=== PATIENT | male | born 1935 | race Caucasian/White ===

== ENCOUNTER 2021-05-31 16:44 | Emergency (ER) | payer MEDICARE ==
[~2021-05-31] VITALS: Ht 177.8 cm; Wt 69.0 kg
--- NOTE | ~2021-05-31 | EMS ---
[address] [address] EMS Patient Care Report Name: DERRICK HERNANDEZ Room: [facility] Naren#: [id number] Admission: 05/31/21 Attend Phys: Discharge: 05/31/21 Date of : 35 Report #: [id number] THIS REPORT FOR: //name// Report Transmitted: 06/01/2021 08:17 EMS Care Summary [facility] [place] Incident [id number] @ 05/31/2021 15:50 Incident Location [address] [place] [address] Patient Derrick Hernandez Male, 85 Years 1935 Patient Address [address] [place] [address] Patient History Endocrine Condition - Other,Hypertension (HTN),Cancer, Unspecified,Neuropathy, Patient Allergies No known allergies, Chief Complaint Abdominal pain/discomfort Disposition Transported No Lights/[place] Dispatch Reason Sick Person Transported To [facility] Narrative [facility] WAS DISPATCHED TO THE LISTED LOCAL ADDRESS ON A SICK. ON SCENE WITH IF[employer], WE CONTACTED THE PATIENT AND HIS INSIDE THE RESIDENCE. THE PATIENT WAS USING HIS WALKER, WALKING THROUGH HIS LIVING ROOM WITH NO OBVIOUS IMMEDIATE LIFE THREATS OR SIGNS OF DISTRESS. THE PATIENT STATED HIS FEEDING TUBE CAME OUT LAST NIGHT AND HE IS HAVING ABDOMINAL PAIN THAT IS "KEEPING HIM FROM WALKING AND MOVING AROUND." THE PATIENT DENIED ANY DIFFICULTY BREATHING, [address] [place] [address] EMS Patient Care Report Name: DERRICK HERNANDEZ Room: [facility]#: [id number] Admission: 05/31/21 Attend Phys: Discharge: 05/31/21 Date of : 35 Report #: [id number] DIZZINESS/WEAKNESS, TINGLING/NUMBNESS IN HIS EXTREMITIES (OUTSIDE BASELINE), HEADACHE, NAUSEA, VISION IMPAIRMENTS, CHEST PAIN, OR CURRENT PAIN OF ANY TYPE. THE PATIENTS G-TUBE SITE WAS CLEAN AND BANDAGED. THE PATIENT STATED HE COULD WALK (USING HIS WALKER) TO THE STRETCHER, LOCATED OUT IN THE DRIVEWAY. ONCE THE PATIENT GOT TO THE [facility], HE USED THE RAILING AND THE ASSISTANCE OF AN IFD MATERIAL CONTROL ASSOCIATE TO GO DOWN THE STAIRS AND LAY ON THE STRETCHER. THE PATIENT WAS VERY ADAMENT ABOUT TAKING HIS WALKER. HE WAS secured TO THE STRETCHER WITH THE LAP BELTS AND TRANSPORTED TO THE AMBULANCE WERE HE AND HIS WALKER WERE LOADED AND SECURED WITHOUT INCIDENT. INSIDE THE AMBULANCE, THE PATIENT WAS PLACED ON the MONITOR. A FULL SET OF VITALS, PHYSICAL ASSESSMENT, AND PATIENT information WERE OBTAINED. THE PATIENT DID COULD NOT PROVIDE ANY CURRENT MEDICATION INFORMATION, HE SAID "MY TAKES CARE OF ALL THAT." AN IV WAS ESTABLISHED AND BLOOD GLUCOSE OBTAINED. TRANSPORT WAS INITIATED. FLUIDS WERE ADMINISTERED AND AN ECG WAS OBTAINED. VITALS WERE monitored EN-ROUTE. THE PATIENT REMAINED STABLE AND TALKATIVE DURING TRANSPORT. AT DESTINATION, THE PATIENT WAS REMOVED FORM ALL MONITORING. HE SIGNED THE PRIVACY AND TRANSFER FORM. THE patient AND HIS BELONGINGS WERE UNLOADED AND TAKEN INTO ROOM TEN (10). THE STRETCHER WAS LOWERED AND LAP BELTS REMOVED. THE PATIENT WAS ABLE TO SCOOT HIMSELF OFF THE STRETCHER, ONTO THE HOSPITAL BED WITHOUT INCIDENT OR ASSISTANCE. A VERBAL PATIENT REPORT WAS GIVEN TO KENAN ANN. SHE signed THE RECEIVING FACILITY FORM, COMPLETING THE TRANSFER OF CARE. [facility]W CLEARED THE CALL. Initial Vitals @16:00Pain: 0/10, @16:36Pain: 0/10, @16:11SpO2: 97, @16:12SpO2: 96, @16:14SpO2: 97, @16:19SpO2: 97, @16:24SpO2: 96, @16:24SpO2: 98, @16:29SpO2: 98, @16:36SpO2: 98, @16:18 @16:20 @16:27 @16:11P: 55,R: 14,BP: 176/80, @16:24P: 61,R: 12,BP: 169/81, @16:36P: 55,R: 12,BP: 173/86, @16:11GCS: 15, @16:24GCS: 15, @16:36GCS: 15, @16:16 @16:15Glucose: 225, [place] [address] EMS Patient Care Report Name: DERRICK HERNANDEZ Room: [facility] MEL Sneed#: [id number] Admission: 05/31/21 Attend Phys: Discharge: 05/31/21 Date of : 35 Report #: [id number] @15:59MENTAL:SKIN:HEENT:LUNG SOUNDS:ABDOMEN:PELVIS//GI:EXTREMITIES:PULSE:NEURO: Impression Acute abdomen Procedures @16:12 cc () Site: Forearm-LeftResponse: UnchangedSucceeded@16:183-Lead ECGResponse: UnchangedSucceeded@16:2012-Lead ECGResponse: [email or web address]@16:2712-Lead ECGResponse: UnchangedSucceeded Timeline 15:59,Call Received 15:50,Dispatch Notified 15:50,Psap Call 15:50,Dispatched 15:50,En Route 15:57,On Scene 15:59,At Patient 16:00,BP: / M,PULSE: ,RR: R,SPO2: Ox,ETCO2: ,BG: ,PAIN: 0,GCS: , 16:11,BP: / M,PULSE: ,RR: R,SPO2: 97 Ox,ETCO2: ,BG: ,PAIN: ,GCS: , 16:11,BP: 176/80 M,PULSE: 55,RR: 14 R,SPO2: Ox,ETCO2: ,BG: ,PAIN: ,GCS: , 16:11,BP: / M,PULSE: ,RR: R,SPO2: Ox,ETCO2: ,BG: ,PAIN: ,GCS: 15, 16:12, cc Site: Forearm-Left,Response: UnchangedSucceeded, 16:12,BP: / M,PULSE: ,RR: R,SPO2: 96 Ox,ETCO2: ,BG: ,PAIN: ,GCS: , 16:14,BP: / M,PULSE: ,RR: R,SPO2: 97 Ox,ETCO2: ,BG: ,PAIN: ,GCS: , 16:15,BP: / M,PULSE: ,RR: R,SPO2: Ox,ETCO2: ,B,PAIN: ,GCS: , 16:16,BP: / M,PULSE: ,RR: R,SPO2: Ox,ETCO2: ,BG: ,PAIN: ,GCS: , 16:16,Depart Scene 16:18,3-Lead ECG,Response: UnchangedSucceeded, 16:18,BP: / M,PULSE: ,RR: R,SPO2: Ox,ETCO2: ,BG: ,PAIN: ,GCS: , 16:19,BP: / M,PULSE: ,RR: R,SPO2: 97 Ox,ETCO2: ,BG: ,PAIN: ,GCS: , 16:20,12-Lead ECG,Response: UnchangedSucceeded, 16:20,BP: / M,PULSE: ,RR: R,SPO2: Ox,ETCO2: ,BG: ,PAIN: ,GCS: , 16:24,BP: / M,PULSE: ,RR: R,SPO2: 96 Ox,ETCO2: ,BG: ,PAIN: ,GCS: , 16:24,BP: / M,PULSE: ,RR: R,SPO2: 98 Ox,ETCO2: ,BG: ,PAIN: ,GCS: , 16:24,BP: 169/81 M,PULSE: 61,RR: 12 R,SPO2: Ox,ETCO2: ,BG: ,PAIN: ,GCS: , 16:24,BP: / M,PULSE: ,RR: R,SPO2: Ox,ETCO2: ,BG: ,PAIN: ,GCS: 15, 16:27,12-Lead ECG,Response: UnchangedSucceeded, 16:27,BP: / M,PULSE: ,RR: R,SPO2: Ox,ETCO2: ,BG: ,PAIN: ,GCS: , 16:29,BP: / M,PULSE: ,RR: R,SPO2: 98 Ox,ETCO2: ,BG: ,PAIN: ,GCS: , 16:36,BP: / M,PULSE: ,RR: R,SPO2: Ox,ETCO2: ,BG: ,PAIN: 0,GCS: , 16:36,BP: / M,PULSE: ,RR: R,SPO2: 98 Ox,ETCO2: ,BG: ,PAIN: ,GCS: , 16:36,BP: 173/86 M,PULSE: 55,RR: 12 R,SPO2: Ox,ETCO2: ,BG: ,PAIN: ,GCS: , 16:36,BP: / M,PULSE: ,RR: R,SPO2: Ox,ETCO2: ,BG: ,PAIN: ,GCS: 15, 16:41,[place] [address] EMS Patient Care Report Name: DERRICK HERNANDEZ Room: [facility]#: [id number] Admission: 05/31/21 Attend Phys: Discharge: 05/31/21 Date of : 35 Report #: [id number] 16:58,Call Closed Disclaimer v1.1 Copyright 2020 [employer] This EMS Care Summary contains data elements from the applicable legal record (which may be displayed differently). It is designed to provide pertinent information for the following purposes: continuity of care, clinical quality, and state data reporting. The complete legal record is available to ED staff and administrators of the receiving hospital in [employer]'s Patient Tracker. All data is provided "as is."
[2021-05-31 21:08] VITALS: BP 135/59
== END 2021-05-31 21:10 | disposition home or self-care (01) ==
LOC: M.ERS 16:44
DX: K94.23 Gastrostomy malfunction (principal); E11.9 Type 2 diabetes mellitus without complications; I10 Essential (primary) hypertension; Z85.028 Personal history of other malignant neoplasm of stomach